=== PATIENT | male | born 1935 | race Caucasian/White ===

== ENCOUNTER → 2024-10-15 15:43 | Outpatient (CLI) | payer MEDICARE, SELFPAY ==
[2024-10-15 17:12] LABS: C-Reactive Protein Quant < 0.5 mg/dL (<1.0)
[2024-10-15 17:26] LABS: Erythrocyte Sedimentation Rate 4 MM/HR (0-15); Rheumatoid Factor < 8.6 IU/mL (<12.0)
[2024-10-18 10:12] LABS: CCP Antibodies IgG/IgA 7 units (0-19)
[2024-10-20 15:11] LABS: Antimyeloperoxidase Antibodies <0.2 units (0.0-0.9); Antiproteinase 3 Antibodies <0.2 units (0.0-0.9); Cytoplasmic C-ANCA <1:20 titer (Neg:<1:20); Perinuclear P-ANCA <1:20 titer (Neg:<1:20)
[2024-10-21 04:36] LABS: CK-BB 0 % (0); CK-MB 0 % (0-3); CK-MM 100 % (97-100); Macro Type 1 0 % (Not Observed); Macro Type 2 0 % (Not Observed)
[2024-10-22 06:37] LABS: Aureobasidium pullulans IgG Negative (Negative); Micropolyspora faeni IgG Negative (Negative); Pigeon Serum IgG Negative (Negative); Thermoactinomyces sacchari IgG Negative (Negative); Thermoactinomyces vulgaris IgG Negative (Negative)
[2024-10-22 13:10] LABS: ANA Screen, IFA Negative (.)
[2024-11-07 08:48] LABS: Anti-TIF-1gamma Ab <20; Anti-U3 RNP Negative
[2024-11-07 08:49] LABS: Anti-MDA-5 Antibody <20
[2024-11-07 08:50] LABS: Anti-NXP-2 Antibody <20
[2024-11-07 08:51] LABS: Anti-Ku Antibody Negative
[2024-11-07 08:52] LABS: Anti-SS-A 52kD Ab IgG <20
[2024-11-07 08:54] LABS: Anti-Jo-1 Antibody <20
[2024-11-07 08:55] LABS: Anti-EJ-Antibody Negative; Anti-PL-7 ANTIBODY Negative; Anti-PL12 Antibody Negative
[2024-11-07 08:56] LABS: Anti-OJ- Antibody Negative; Anti-SRP-Antibody Negative
== END ==
PROVIDERS: PCP Internal Medicine; Referring Provider Internal Medicine; Visit Provider Internal Medicine
DX: J84.9 Interstitial pulmonary disease, unspecified (principal); K44.9 Diaphragmatic hernia without obstruction or gangrene; K21.9 Gastro-esophageal reflux disease without esophagitis; I50.32 Chronic diastolic (congestive) heart failure
CPT/HCPCS: 36415; 82550; 82552; 83516; 85651; 86038; 86140; 86200; 86235; 86256; 86331; 86430; 86602; 86606; 86609; 86671; 99215